=== PATIENT | male | born 1945 | race Caucasian/White ===

== ENCOUNTER 2017-06-29 13:41 | Emergency (ER) | payer SELFPAY ==
[~2017-06-29] VITALS: Ht 165.1 cm; Wt 78.5 kg
[2017-06-29 13:57] VITALS: Ht 165.1 cm; Wt 78.5 kg
[2017-06-29] MEDS ORDERED: SOD CHLORIDE 0.9% 1,000 ML IV STA (14:55)
[2017-06-29] MEDS ORDERED: CEFAZOLIN 1 GM/50 ML (PMX) 50 ML IVPB SCH (15:00)
[2017-06-29] MEDS ORDERED: DIPHTH/TET/ACEL PERTUSS (ADULT) 0.5 ML VIAL IM* ONE (15:00)
[2017-06-29] MEDS ORDERED: LIDOCAINE 1% (MDV) 20 ML INJ SC ONE (15:00)
[2017-06-29 15:43] LABS: BASOPHILS % 0.1 % (0.0-2.0); EOSINOPHILS # 0.1 10^3/ul (0.0-0.5); HEMATOCRIT 43.7 % (42.0-52.0); HEMOGLOBIN 15.2 g/dl (14.0-18.0); LYMPHOCYTES # 1.1 10^3/ul (0.8-2.9); LYMPHOCYTES % 15.9 % (15.0-51.0); MEAN CORPUSCULAR HEMOGLOBIN 31.9 pg (29.0-33.0); MEAN CORPUSCULAR HGB CONC 34.8 g/dl (32.0-37.0); MEAN CORPUSCULAR VOLUME 91.6 fl (82.0-101.0); MEAN PLATELET VOLUME 10.9 fl (7.4-10.4); MONOCYTE # 0.4 10^3/ul (0.3-0.9); MONOCYTES % 5.4 % (0.0-11.0); NEUTROPHILS % 77.3 % (39.0-77.0); PLATELET COUNT 170 10^3/UL (140-415); RED BLOOD COUNT 4.77 10^6/ul (4.70-6.10); WHITE BLOOD COUNT 6.8 10^3/ul (4.8-10.8)
[2017-06-29] MEDS ORDERED: SOD CHLORIDE 0.9% 1,000 ML IV SCH (16:17)
[2017-06-29 16:22] LABS: INR 1.02; PARTIAL THROMBOPLASTIN TIME 23.2 Sec (25.0-35.0); PROTIME 13.4 Sec (12.2-14.2)
[2017-06-29] MEDS ORDERED: ACETAMINOPHEN 325 MG TAB PO PRN (16:30)
[2017-06-29] MEDS ORDERED: ONDANSETRON 4 MG INJ IV PRN (16:30)
[2017-06-29 16:32] LABS: ALANINE AMINOTRANSFERASE 30 IU/L (13-69); ALBUMIN 4.3 g/dl (3.3-4.9); ALBUMIN/GLOBULIN RATIO 1.22; ALKALINE PHOSPHATASE 69 IU/L (42-121); ANION GAP 15 (8-16); ASPARTATE AMINO TRANSFERASE 25 IU/L (15-46); BILIRUBIN,INDIRECT 0.3 mg/dl (0-1.1); BILIRUBIN,TOTAL 0.3 mg/dl (0.2-1.3); BLOOD UREA NITROGEN 23 mg/dl (7-20); CALCIUM 9.1 mg/dl (8.4-10.2); CARBON DIOXIDE 23 mmol/L (21-31); CHLORIDE 111 mmol/L (97-110); CREATININE 0.83 mg/dl (0.61-1.24); GLUCOSE 150 mg/dl (70-220); POTASSIUM 3.8 mmol/L (3.5-5.1); SODIUM 145 mmol/L (135-144); TOTAL PROTEIN 7.8 g/dl (6.1-8.1)
--- NOTE | 2017-06-29 16:40 | RADRPT ---
PROCEDURE: XR Finger. CLINICAL INDICATION: Pain following finger amputation TECHNIQUE: Three views of the right fourth finger. COMPARISON: None. FINDINGS: The right distal tip of the finger and distal phalanx have been amputated. There is a mildly displa barber, comminuted fracture of the right fourth finger distal phalanx. Soft tissue injury and soft tis lula swelling are noted. IMPRESSION: Amputation of the fourth finger distal tip with a comminuted fracture of the distal phalanx with sof t tissue injury and swelling noted. RPTAT: EE .Selin Montejo MD, Date Time Electronically viewed and signed by .Selin Montejo MD, on 06/29/2017 16:40 .F/
[2017-06-29 16:44] LABS: TROPONIN-I < 0.012 ng/ml (0.00-0.12)
--- NOTE | 2017-06-29 16:55 | ERD ---
ER Documentation Chief Complaint Date/Time DATE: 06/29/17 TIME: 16:55 Chief Complaint RIGHT HAND, FOURTH FINGER CUT TO THE BONE FROM FOREIGN OBJECT HPI This is a 71-year-old male who presents to the emergency room for evaluation of amputation of his fourth finger. This patient was reaching into a trash can cut his finger on the back of a television. The patient states that he cut his right ring finger. He does state he is right-handed. He denies any other trauma. Denies numbness and tingling. He denies any aggravating or relieving factors. ROS All systems reviewed and are negative except as per history of present illness. Medications Home Meds No Active Prescriptions or Reported Meds Allergies Allergies: Coded Allergies: No Known Allergy (Unverified , 06/29/17) PMhx/Soc Medical and Surgical Hx: pt denies Medical Hx, pt denies Surgical Hx Hx Alcohol Use: Yes Hx Substance Use: No Smoking Status: Never smoker Physical Exam Vitals Vital Signs Date Time Temp Pulse Resp B/P Pulse Ox O2 Delivery O2 Flow Rate FiO2 06/29/17 16:54 98.3 54 20 138/80 98 Room Air 06/29/17 13:57 98.3 52 18 129/67 98 Physical Exam INITIAL VITAL SIGNS: Reviewed by me GENERAL: The patient is well developed and appropriate for usual state of health in no apparent distress HEENT: Pupils equal, round, and reactive to light. EOMI. There is no scleral icterus. NECK: C-spine is soft and supple, there is no meningismus. There is no cervical lymphadenopathy. LUNGS: Clear to auscultation bilaterally. There are no rales, wheezes or rhonchi. HEART: Regular rate and rhythm, no murmurs, clicks, rubs or gallops. ABDOMEN: Soft, non-tender, non-distended. There are bowel sounds in all four quadrants. No rebound or guarding. EXTREMITIES: Partial amputation of the distal portion of the fourth finger on the right hand, no arterial bleeding, NEUROLOGICAL: The patient moves all four extremities with 5/5 strength. Cranial nerves II - XII are intact. Normal gait. Alert and oriented SKIN: There is no apparent rash or petechiae. HEME/LYMPHATIC: There is no evidence of excessive bruising or lymphedema. PSYCHIATRIC: The patient does not appear anxious or depressed. Result Diagram: 06/29/17 1518 06/29/17 1518 Results 24 hrs Laboratory Tests Test 06/29/17 15:18 White Blood Count 6.810^3/ul Red Blood Count 4.7710^6/ul Hemoglobin 15.2g/dl Hematocrit 43.7% Mean Corpuscular Volume 91.6fl Mean Corpuscular Hemoglobin 31.9pg Mean Corpuscular Hemoglobin Concent 34.8g/dl Red Cell Distribution Width 12.0% Platelet Count 22900^3/UL Mean Platelet Volume 10.9fl Neutrophils % 77.3% Lymphocytes % 15.9% Monocytes % 5.4% Eosinophils % 1.0% Basophils % 0.1% Nucleated Red Blood Cells % 0.0/100WBC Neutrophils # (Manual) 5.210^3/ul Lymphocytes # 1.110^3/ul Monocytes # 0.410^3/ul Eosinophils # 0.110^3/ul Basophils # 0.010^3/ul Nucleated Red Blood Cells # 0.010^3/ul Prothrombin Time 13.4Sec Prothrombin Time Ratio 1.0 INR International Normalized Ratio 1.02 Activated Partial Thromboplast Time 23.2Sec Sodium Level 145mmol/L Potassium Level 3.8mmol/L Chloride Level 111mmol/L Carbon Dioxide Level 23mmol/L Anion Gap 15 Blood Urea Nitrogen 23mg/dl Creatinine 0.83mg/dl Glucose Level 150mg/dl Calcium Level 9.1mg/dl Total Bilirubin 0.3mg/dl Direct Bilirubin 0.00mg/dl Indirect Bilirubin 0.3mg/dl Aspartate Amino Transf (AST/SGOT) 25IU/L Alanine Aminotransferase (ALT/SGPT) 30IU/L Alkaline Phosphatase 69IU/L Troponin I < 0.012ng/ml Total Protein 7.8g/dl Albumin 4.3g/dl Globulin 3.50g/dl Albumin/Globulin Ratio 1.22 Current Medications Medications (Trade) Dose Ordered Sig/Skyler Route PRN Reason Start Time Stop Time Status Last Admin Dose Admin Lidocaine (Xylocaine 1% (Mdv) 20 ml) 20 ml ONCE ONCE SC 06/29/17 15:00 06/29/17 15:01 DC 06/29/17 15:47 Diphtheria/ Tetanus/Acell Pertussis 0.5 ml 0.5 ml ONCE ONCE IM* 06/29/17 15:00 06/29/17 15:01 DC 06/29/17 15:46 Cefazolin Sodium 50 ml @ 100 mls/hr ONCE IVPB 06/29/17 15:00 06/29/17 15:29 DC 06/29/17 15:47 Sodium Chloride 1,000 ml @ 1,000 mls/hr Q1H STAT IV 06/29/17 14:55 06/29/17 15:54 DC 06/29/17 15:45 Sodium Chloride (NS) 1,000 ml @ 80 mls/hr [id number] IV 06/29/17 16:17 06/30/17 04:46 06/29/17 16:51 Ondansetron HCl (Zofran Inj) 4 mg BRIDGE ORDER PRN IV NAUSEA AND/OR VOMITING 06/29/17 16:30 06/30/17 16:29 Acetaminophen (Tylenol Tab) 650 mg ER BRIDGE PRN PO MILD PAIN/FEVER 06/29/17 16:30 06/30/17 16:29 Procedures/MDM X-ray Hand 3V interpreted by me: Scaphoid: X-ray Finger 2V Interpreted by me: Bones: Amputation of the fourth finger distal tip with a comminuted fracture of the distal phalanx with soft tissue injury and swelling noted. Joints: [No dislocation] This 71-year-old male presents to the ER for evaluation of finger amputation. When I saw him I did note a partial finger amputation of the distal phalanx of the right fourth finger. The patient did have an IV line established she was given Ancef, tetanus was updated. I have consulted our orthopedic surgeon, Dr. Hanna who states patient can be discharged and can follow up with him in his office on July 01. I have relayed this information to the patient who is agreeable with this plan of care. The patient will be discharged with Bactrim, Keflex, [place] for breakthrough pain. Departure Diagnosis: Primary Impression: Partial traumatic transphalangeal amputation of right ring finger Condition: Stable VIKAS LUU DO Jun 29, 2017 16:55
[2017-06-29] MEDS ORDERED: CEPH-443 PO (17:02)
[2017-06-29] MEDS ORDERED: SULF1TAB31 PO (17:02)
[2017-06-29] MEDS ORDERED: HYDR-906 PO (17:02)
[2017-06-29 17:49] VITALS: BP 115/73; PULSE 52; RESP 20; TEMP 98
== END 2017-06-29 17:50 | disposition home or self-care (01) ==
LOC: FTE 13:41
DX: S68.624A Partial traumatic transphalangeal amputation of right ring finger, initial encounter (principal); M79.644 Pain in right finger(s); W26.8XXA Contact with other sharp object(s), not elsewhere classified, initial encounter; Y92.9 Unspecified place or not applicable
CPT/HCPCS: 36415; 73140; 80053; 84484; 85025; 85610; 85730; 90471; 90715; 96374; 99284; J0690; J7030